=== PATIENT | female | born 1975 | race African-American/Black ===

== ENCOUNTER → 2017-02-13 | Outpatient (CLI) | payer OTHER ==
[~2017-02-13] MED LIST: ACETAMINOPHEN-1 EAC1 PO; AMLODIPINE BESY10 MG PO; BACITRACIN3.5 GM TOP; BACTRIM DS TAB1 EACH PO; ERYTHROMYCIN E3.5 G1 OPHTHALMIC; FLEXERIL PO; IBUPROFEN 600600 M1 PO; KEFLEX500 M1 PO; KETOROLAC TROME10 MG PO; ONDANSETRON HCL4 M2 PO; PREDNISONE 20 M20 M1 PO; PRILOSEC 20 MG20 MG PO; TOBREX3.5 GM OP; TORADOL 10 MG T10 MG PO
[2017-02-13 12:13] LABS: ABSOLUTE EOSINOPHILS 0.1 thou/uL (0.0-0.7); ABSOLUTE LYMPHOCYTES 1.7 thou/uL (0.8-5.3); ABSOLUTE MONOCYTES 0.3 thou/uL (0.0-1.2); ABSOLUTE NEUTROPHILS 2.1 thou/uL (1.6-8.1); EOSINOPHILS 3.2 %; HEMATOCRIT 39.1 % (37.0-47.0); HEMOGLOBIN 12.6 gm/dL (12.0-15.0); LYMPHOCYTES 40.1 %; MCH 27.5 pg (26.0-34.0); MCHC 32.2 g/dL (28.0-37.0); MCV 85.4 fL (80.0-100.0); MONOCYTES 6.4 %; MPV 7.6 fl. (7.2-11.1); NUCLEATED RBCS 0 /100WBC; PLATELET COUNT* 337 thou/uL (150-400); POLYS 49.3 %; RBC 4.58 mil/uL (4.20-5.00); RDW-CV 13.5 % (10.5-14.5); WBC 4.2 thou/uL (4.0-11.0)
[2017-02-13 12:15] LABS: CALCIUM 8.6 mg/dL (8.5-10.1); CREATININE 0.8 mg/dL (0.6-1.3); POTASSIUM 3.7 mmol/L (3.5-5.1)
[2017-02-13 12:20] LABS: APTT 29.2 Seconds (25.0-31.3); INR 1.1; PROTIME 10.3 Seconds (9.20-11.50)
== END ==
LOC: M.MRI 07:57
PROVIDERS: Radiology Diagnostic Radiology
DX: D25.9 Leiomyoma of uterus, unspecified (principal); N85.2 Hypertrophy of uterus; I86.2 Pelvic varices

== ENCOUNTER 2017-02-14 07:04 | Inpatient (IN) | payer OTHER ==
[~2017-02-14] VITALS: Ht 170.2 cm; Wt 96.6 kg
[~2017-02-14 07:04] MED LIST changes: -ACETAMINOPHEN-1 EAC1 PO; -BACITRACIN3.5 GM TOP; -IBUPROFEN 600600 M1 PO; -KEFLEX500 M1 PO; -KETOROLAC TROME10 MG PO; -ONDANSETRON HCL4 M2 PO; -TORADOL 10 MG T10 MG PO
[2017-02-14 07:22] VITALS: BP 124/75
[2017-02-14 12:00] VITALS: BP 117/75
[2017-02-14 13:35] LABS: INR 1.1; PROTIME 10.6 Seconds (9.20-11.50)
[2017-02-14 13:40] LABS: ALBUMIN 4.1 g/dL (3.4-5.0); CREATININE 0.8 mg/dL (0.6-1.3); MAGNESIUM 1.8 mg/dL (1.8-2.4); POTASSIUM 3.4 mmol/L (3.5-5.1); TOTAL BILIRUBIN 0.3 mg/dL (<0.1-1.0); TOTAL PROTEIN 7.6 g/dL (6.4-8.2)
[2017-02-14 16:08] VITALS: BP 125/78
--- NOTE | 2017-02-14 18:58 | NUR ---
ASSUMED CARE OF PATIENT AT APPROXIMATELY 1200. ALERT AND ORIENTED X4. ASSESSMENT COMPLETED AND IS CHARTED. PATIENT HAS MILD NAUSEA UPON ARRIVAL NUT NO VOMITING. NAUSEA PASSED SHORTLY AFTER ARRIVAL AND PATIENT HAS HAD NO FURTHER COMPLAINTS. PAIN HAS BEEN MANAGED WITH LEARNING SUPPORT TEACHER PUMP INFUSING FENTANYL. PATIENT HAS HAD FAMILY AT BEDSIDE THROUGHOUT SHIFT. HOURLY ROUNDS HAVE BEEN MAINTAINED WHILE PATIENT HAS BEEN ON UNIT. CALL LIGHT IS WITHIN REACH. NURSING WILL CONTINUE TO MONITOR.
[2017-02-14 21:30] VITALS: BP 149/94
[2017-02-15 00:40] VITALS: BP 129/89
[2017-02-15 04:10] VITALS: BP 143/94
[2017-02-15 04:52] LABS: HEMATOCRIT 39.2 % (37.0-47.0); HEMOGLOBIN 12.8 gm/dL (12.0-15.0); MCH 27.6 pg (26.0-34.0); MCHC 32.5 g/dL (28.0-37.0); MCV 84.8 fL (80.0-100.0); MPV 7.3 fl. (7.2-11.1); RBC 4.62 mil/uL (4.20-5.00); RDW-CV 13.9 % (10.5-14.5); WBC 9.2 thou/uL (4.0-11.0)
[2017-02-15 04:56] LABS: INR 1.1; PROTIME 10.7 Seconds (9.20-11.50)
[2017-02-15 05:21] LABS: ALBUMIN 4.1 g/dL (3.4-5.0); CALCIUM 8.5 mg/dL (8.5-10.1); CREATININE 0.6 mg/dL (0.6-1.3); MAGNESIUM 1.7 mg/dL (1.8-2.4); TOTAL BILIRUBIN 0.4 mg/dL (<0.1-1.0); TOTAL PROTEIN 7.4 g/dL (6.4-8.2)
--- NOTE | 2017-02-15 05:40 | NUR ---
ALERT AND ORIENTED. UP WITH STAND BY ASSIST TO BATHROOM. USING MERCERIZING RANGE FEEDER PUMP AND PO PAIN TO HELP WITH LOWER ABD PAIN. NAUSEA MEDICATION GIVEN X1 AND HELPFUL. DRESSING LEFT GRION DRY AND INTACT. LEFT WRIST BAND DRESSING INTACT. VOIDING WITHOUT DIFFICULTY. NO C/O SOA. CALL LIGHT WITHIN REACH. WILL CONTINUE TO MONITOR.
[2017-02-15 08:00] VITALS: BP 132/87
[2017-02-15] MEDS ORDERED: KETOROLAC TROME10 MG PO (09:35)
[2017-02-15 12:16] VITALS: BP 132/87
[2017-02-15] MEDS ORDERED: ACETAMINOPHEN-1 EAC1 PO (13:10)
[2017-02-15] MEDS ORDERED: ONDANSETRON HCL4 M2 PO (13:11)
[2017-02-15] MEDS ORDERED: TORADOL 10 MG T10 MG PO (13:12)
[2017-02-15 13:15] VITALS: BP 132/87
--- NOTE | 2017-02-15 14:41 | NUR ---
ASSUMED CARE OF PATIENT AFTER MORNING REPORT. ALERT AND ORIENTED X4. ASSESSMENT COMPLETED AND IS CHARTED. VSS ON ROOM. PATIENT HAD NO COMPLAINTS OF NAUSEA. PAIN HAS BEENMANAGED WITH MEDICATION. PATIENT DISCHARGED AT 1315. ALL PERSONAL BELONGINGS LEFT WITH PATIENT. PRESCRIPTIONS AND SICHARGE INFORMATION SENT WITH PATIENT UPON DISCHARGE.
== END 2017-02-15 13:15 | disposition home or self-care (01) | DRG 750 ==
LOC: M.INT 07:04 → M.ORTHSURG 12:02
PROVIDERS: Radiology Diagnostic Radiology; ADMIT Family Medicine
PROC: 04LF3ZU Occlusion of Left Uterine Artery, Percutaneous Approach (ICD-10-PCS; principal; 2017-02-14)
PROC: 04LE3ZT Occlusion of Right Uterine Artery, Percutaneous Approach (ICD-10-PCS; principal; 2017-02-14)
DX: D25.9 Leiomyoma of uterus, unspecified (principal); N93.8 Other specified abnormal uterine and vaginal bleeding; K21.9 Gastro-esophageal reflux disease without esophagitis; E66.9 Obesity, unspecified; I10 Essential (primary) hypertension; Z88.6 Allergy status to analgesic agent; Z87.891 Personal history of nicotine dependence; Z82.49 Family history of ischemic heart disease and other diseases of the circulatory system; Z68.33 Body mass index [BMI] 33.0-33.9, adult

== ENCOUNTER → 2017-04-15 | Outpatient (CLI) | payer OTHER ==
[~2017-04-15] MED LIST changes: +ACETAMINOPHEN-1 EAC1 PO; +BACITRACIN3.5 GM TOP; +IBUPROFEN 600600 M1 PO; +KEFLEX500 M1 PO; +KETOROLAC TROME10 MG PO; +ONDANSETRON HCL4 M2 PO; +TORADOL 10 MG T10 MG PO
[2017-04-15 10:00] VITALS: BP 125/84
[2017-04-15 10:04] VITALS: BP 125/84
== END ==
LOC: M.ULTRA 03-20 09:00 → M.INT 03-20 09:30 → M.ULTRA 04-08 09:00
DX: D25.9 Leiomyoma of uterus, unspecified (principal)

== ENCOUNTER 2017-06-01 11:33 | Emergency (ER) | payer OTHER ==
[~2017-06-01] VITALS: Ht 170.2 cm; Wt 90.7 kg
[~2017-06-01 11:33] MED LIST changes: -BACITRACIN3.5 GM TOP; -IBUPROFEN 600600 M1 PO; -KEFLEX500 M1 PO
[2017-06-01] MEDS ORDERED: IBUPROFEN 600600 M1 PO (12:57)
[2017-06-01] MEDS ORDERED: KEFLEX500 M1 PO (12:57)
[2017-06-01] MEDS ORDERED: BACITRACIN3.5 GM TOP (12:57)
[2017-06-01 13:04] VITALS: BP 140/83
== END 2017-06-01 13:04 | disposition home or self-care (01) ==
LOC: M.ERS 11:33
DX: S00.83XA Contusion of other part of head, initial encounter (principal); I10 Essential (primary) hypertension; Z88.5 Allergy status to narcotic agent; Z87.891 Personal history of nicotine dependence; Z23 Encounter for immunization; W18.39XA Other fall on same level, initial encounter; Y93.89 Activity, other specified; Y92.89 Other specified places as the place of occurrence of the external cause; Y99.8 Other external cause status

== ENCOUNTER 2018-06-29 18:54 | Emergency (ER) | payer OTHER ==
[~2018-06-29] VITALS: Ht 170.2 cm; Wt 92.5 kg
[~2018-06-29 18:54] MED LIST changes: +BACITRACIN3.5 GM TOP; +IBUPROFEN 600600 M1 PO; +KEFLEX500 M1 PO
[2018-06-29 20:07] VITALS: BP 120/79
== END 2018-06-29 20:08 | disposition home or self-care (01) ==
LOC: M.ERS 18:54
DX: L25.9 Unspecified contact dermatitis, unspecified cause (principal); I10 Essential (primary) hypertension; Z88.5 Allergy status to narcotic agent; Z87.891 Personal history of nicotine dependence

== ENCOUNTER 2018-09-30 16:45 | Emergency (ER) | payer OTHER ==
[~2018-09-30] VITALS: Ht 170.2 cm; Wt 93.0 kg
[2018-09-30] MEDS ORDERED: BACTRIM DS TAB1 EACH PO (17:37)
== END 2018-09-30 17:46 | disposition home or self-care (01) ==
LOC: M.ERS 16:45
DX: L01.00 Impetigo, unspecified (principal); I10 Essential (primary) hypertension; Z87.891 Personal history of nicotine dependence; Z88.5 Allergy status to narcotic agent